=== PATIENT | male | born 1995 | race Caucasian/White ===

== ENCOUNTER 2017-06-09 05:43 | Emergency (ER) | payer OTHER ==
[2017-06-09 06:42] VITALS: BP 132/82
== END 2017-06-09 06:42 | disposition home or self-care (01) ==
LOC: ED 05:43
DX: K59.00 Constipation, unspecified (principal)

== ENCOUNTER 2017-09-27 18:35 | Emergency (ER) | payer OTHER ==
[2017-09-27 21:57] VITALS: BP 122/83
== END 2017-09-27 21:57 | disposition home or self-care (01) ==
LOC: ED 18:35
DX: B34.9 Viral infection, unspecified (principal); R03.0 Elevated blood-pressure reading, without diagnosis of hypertension
CPT/HCPCS: J1885; J7512; J7613